=== PATIENT | male | born 1980 | race Caucasian/White ===

== ENCOUNTER 2023-11-17 08:42 | Emergency (ER) | payer SELFPAY ==
[2023-11-17 09:20] VITALS: BP 118/74; PULSE 67; RESP 18; TEMP 36.6; O2SAT 98; BMI 21.5
--- NOTE | 2023-11-17 09:35 | ED_ITS ---
Discharge Plan Disposition Patient Disposition: Home, Self-Care Condition: Good Prescriptions Prescriptions: New amoxicillin-pot clavulanate 875-125 mg Tablet 1 tab PO Q12H Qty: 20 0RF Referrals Follow up/Referrals: Facundo Arthur [Primary Care Provider] - See instructions Activity Restrictions/Add. Instructions Additional Instructions/Restrictions: Do warm compresses on area 3-4 times daily Clean area with warm water and baby shampoo Take antibiotics as prescribed Follow up with Eye Doctor for further evaluation and immediately if any worsening of symptoms Straight to ER if any loss of vision severe pain or any life threatening symptoms your wound culture should be back in the next 3-5 days make sure to follow up to make sure you are on the right antibiotic Clinical Impressions Clinical Impression: Eyelid problem Instructions Patient Instructions: DI for Hordeolum, DI for Chalazion, Amoxicillin and Clavulanic Acid Discharge ED Provider: Shweta Garcia [facility] [place] HPI General Stated complaint: swelling in L eye Mode of Arrival: Ambulatory Source of Information: Patient Limitations: No Limitations Time Seen by Provider: 11/17/23 09:35 Description of Symptoms (Recalled from Triage Doc. by RN): Pt stated that a large bump as come up on his left eye. He describes it as painful and is hindering his vision. HEENT Symptoms (Recalled from RN notes): Yes Resp Symptoms (Recalled from RN notes): No Skin Symptoms (Recalled from RN notes): No MS Symptoms (Recalled from RN notes): No Functional Status (Recalled from RN notes): n/a History of Present Illness Provider Complaint: Patient states that he has had a large bump like area that popped up on his left lower eyelid area States started out small but has continued to get larger over the last few days and sore to the touch and draining some States that when he looks down he can see it sticking out and feels more painful so he came in today to get it checked Related Data Previous Rx's Medication Instructions Recorded amoxicillin 875 mg-potassium 1 tab PO Q12H #20 tabs 11/17/23 clavulanate 125 mg tablet Allergies Allergy/AdvReac Type Severity Reaction Status Date / Time erythromycin base Allergy Unknown Verified 11/17/23 09:29 [ERYTHROMYCIN BASE] Worker's Comp Is this a Worker's Comp case?: No [facility] Disclaimer: The information contained in this section may have been updated after the patient was seen, as this information can be updated by other users. Social History Smoking Status: Unknown if ever smoked alcohol intake: never current occupational status: employed Travel in the last 8 weeks: None ROS Obtained: Yes All systems reviewed & no additional complaints except as documented and Yes Systems reviewed as appropriate & no additional complaints except as documented Constitutional Constitutional: Reports system reviewed and no additional complaints, except as documented and Reports as per HPI Eyes Eyes: Reports system reviewed and no additional complaints, except as documented, Reports as per HPI and Reports other (large bump like lesion on the left lower eyelid area) ENT Ears, Nose, Mouth, and Throat: Reports system reviewed and no additional complaints, except as documented and Reports as per HPI Cardiovascular Cardiovascular: Reports system reviewed and no additional complaints, except as documented and Reports as per HPI Respiratory Respiratory: Reports system reviewed and no additional complaints, except as documented and Reports as per HPI Gastrointestinal Gastrointestingal: Reports system reviewed and no additional complaints, except as documented and as per HPI Physical Exam General General appearance: alert and in no apparent distress Expanded Head Exam Head image: 1. hard bump like area noted with white drainage culture obtained and sent to lab Eye Eye exam: Present other (large bump like lesion noted just below left eyelid area that is draining culture obtained and sent to lab) Respiratory Respiratory exam: Present normal lung sounds bilaterally; Absent respiratory distress or wheezes Cardiovascular Cardiovascular exam: Present regular rate, normal rhythm and normal heart sounds Neurological Exam Neurological exam: Present alert, oriented X3 and normal gait Medical Decision Making Alfonso Inquiry Pt receiving controlled substance: No Alfonso was queried for this patient: No Vital Signs: 11/17/23 09:20 Temperature 97.8 F Temperature Source Oral Pulse Rate [Right Radial] 67 Respiratory Rate 18 Blood Pressure [Right Arm] 118/74 Blood Pressure Mean [Right Arm] 88 Blood Pressure Source [Right Arm] Automatic Cuff Blood Pressure Position [Right Arm] Sitting 02 Sat by Pulse Oximetry 98 Oxygen Delivery Method Room Air Medical Decision Narrative: Discussed transfer to the ED and/or intelligence specialist for further evaluation and exam and patient declined at this time Patient aware of risks even blindness/ and still declined
[2023-11-17 10:13] VITALS: BP 118/74; PULSE 67; RESP 19; TEMP 36.6; O2SAT 98
== END 2023-11-17 10:13 | disposition home or self-care (01) ==
PROVIDERS: Emergency Provider Nurse Practitioner; PCP Family Medicine
DX: H02.9 Unspecified disorder of eyelid (principal)
CPT/HCPCS: 87070; 87205; 99204; 99212; G0463